=== PATIENT | female | born 1995 | race Caucasian/White ===

== ENCOUNTER → 2017-06-29 21:56 | Outpatient (CLI) | payer MEDICAID, SELFPAY ==
[2017-07-04 14:39] LABS: HPV Reflexed? NOT INDICATED
== END ==
PROVIDERS: Visit Provider Obstetrics & Gynecology
DX: Z12.4 Encounter for screening for malignant neoplasm of cervix (principal)
CPT/HCPCS: 88175; G0145

== ENCOUNTER 2019-01-23 10:12 | Emergency (ER) | payer MEDICAID, SELFPAY ==
[2019-01-23 10:13] VITALS: BP 101/68; PULSE 105; RESP 18; TEMP 36.3; O2SAT 99; BMI 22.1
--- NOTE | 2019-01-23 11:02 | ED.DCSUM_ITS ---
- ER Visit Summary Date of Service: 01/23/19 Chief Complaint: Nausea, vomiting and diarrhea History of Present Illness: The patient is a 23 F past medical history. Prior your tubal ligation. Patient states this morning around 7 AM had nausea, vomiting and diarrhea. No significant abdominal pain. Last menstrual period was 01/16/2019. She denies any vaginal bleeding or discharge. Denies any fever. Denies any dysuria. No one else at home currently is sick. Physical Examination: Young female no acute distress vital signs are stable and afebrile. HEENT exam unremarkable. Neck nontender. Lungs clear to auscultation bilaterally. Heart regular rhythm rate about 105 no murmur. Abdomen is soft and nontender normal bowel sounds no peritoneal signs. No localizing tenderness. No hernias or masses. No distention or signs of obstruction. Both the right upper right lower quadrants are unremarkable. Extremities moves all 4. Back nontender. Neurologically she is awake and alert with no focal motor deficits. Test Results: None Emergency Department Course and Treatment: History and exam are consistent with a viral gastroenteritis. Her abdomen is benign. She will be treated with IV fluids and IV Zofran. Reassessed and a p.o. challenge. Treatment Plan: Fluids and rest. As needed for nausea. Follow-up if not improving. Return if worse. Disposition: Discharge Impression: Acute nausea, vomiting and diarrhea secondary to viral gastroenteritis This note was generated with [employer] dictation software. It may contain incorrect words, spelling, and punctuation that were not noted in review of the chart prior to signing ED Disposition - Plan for ED Patient: Referrals: Care Physician,No Primary [Primary Care Provider] -
--- NOTE | 2019-01-23 11:04 | ED.DEP ---
ED Disposition - Plan for ED Patient: Disposition: Home or Assisted Living Instructions: GASTROENTERITIS, Viral (4y-Adult) Prescriptions: Ondansetron [Zofran Odt] 4 mg PO Q8H PRN PRN #7 tab PRN Reason: Nausea Prescription Printed Referrals: Cheng Gonzalez MD [STAFF PHYSICIAN] - 3-5 Days if not improving Additional Instructions: Fluids and rest. Zofran as needed for nausea. Follow-up with not improving or return if worse.
[2019-01-23 11:11] VITALS: BP 102/58; PULSE 71; RESP 16; O2SAT 98
[2019-01-23] MEDS: 0.9% Normal Saline 1,000 ML 1000 ML IV (11:12)
[2019-01-23] MEDS: Ondansetron 4 MG/2 ML Vial IV (11:12)
== END 2019-01-23 12:38 | disposition home or self-care (01) ==
LOC: ED 11:25
PROVIDERS: Emergency Provider Emergency Medicine
DX: A08.4 Viral intestinal infection, unspecified (principal); Z72.0 Tobacco use
CPT/HCPCS: 96361; 96374; 99283; J7030; J2405

== ENCOUNTER → 2019-05-08 13:23 | Outpatient (CLI) | payer MEDICAID, SELFPAY ==
[2019-05-08 13:01] VITALS: BMI 22.1
[2019-05-08 13:44] LABS: Absolute Lymphocyte Count 1.89 X10^3/uL (0.83-4.51); Absolute Neutrophil Count 3.3 X10^3/uL (2.0-7.7); Basophil# 0.03 X10^3/uL; Basophil% 0.5 % (0-1); Eosinophil# 0.21 X10^3/uL; Eosinophils% 3.6 % (0-5); Hematocrit 42.4 % (37-47); Hemoglobin 14.1 g/dL (12.0-15.0); Lymphocyte # 1.89 X10^3/ul (4.0); Lymphocyte % 32.1 % (19-41); Mean Corp Hgb Conc 33.3 g/dL (32-36); Mean Corpuscular Hgb 29.6 pg (27.0-32.0); Mean Corpuscular Volume 88.9 fL (81-99); Monocyte# 0.47 X10^3/uL; NRBC Flagged by Analyzer 0 % (0-5); Neutrophil # 3.26 X10^3/uL (2.7-7.7); Neutrophil % 55.3 % (47-70); Platelet Count 251 K/mm3 (150-450); RBC Distribution Width CV 11.8 % (11.6-14.6); RBC Distribution Width SD 38.1 fl (35.1-43.9); Red Blood Count 4.77 M/mm3 (4.2-5.4); White Blood Count 5.9 K/mm3 (4.4-11.0)
[2019-05-08 14:08] LABS: T4 Free Direct 0.98 ng/dL (0.76-1.46)
[2019-05-08 20:41] LABS: Chlamydia Trachomatis by PCR Negative (Negative); Neisserai gonorrhoeae by PCR Negative (Negative); Probe Check PASS; Sample Adequacy Control PASS; Specimen Processing Control PASS
== END ==
PROVIDERS: Referring Provider Obstetrics & Gynecology; Visit Provider Obstetrics & Gynecology
DX: N93.9 Abnormal uterine and vaginal bleeding, unspecified (principal)
CPT/HCPCS: 36415; 84439; 84443; 85025; 87491; 87591

== ENCOUNTER → 2019-05-16 07:49 | Outpatient (CLI) | payer MEDICAID, SELFPAY ==
[2019-05-08 13:01] VITALS: BMI 22.1
--- NOTE | 2019-05-16 07:49 | US_ITS ---
STUDY: ULTRASOUND OF THE FEMALE PELVIS - COMPLETE REASON FOR EXAM: Female, 23 years old. AUB LMP: 05/04/2019 TECHNIQUE: Transabdominal TECHNICAL QUALITY: Adequate. COMPARISON: None. FINDINGS: The uterus is anteverted and is in a midline position. The uterus measures 7.3 x 5.3 x 3.9 cm. Normal uterine cervix. The endometrium measures 2 mm in thickness, and is hyperechoic. There is no demonstrated endometrial mass. There is no demonstrated myometrial mass. I.U.D. - The patient does not have an I.U.D. The right ovary is visualized. The right ovary measures 3.7 x 3.6 x 2.6 cm. There is no right ovarian cyst or ovarian mass. There is no visualized right adnexal mass or complex lesion. There is normal arterial and normal venous vascularity. The left ovary is visualized. The left ovary measures 3.0 x 2.6 x 2.0 cm. There is no left ovarian cyst or ovarian mass. There is no visualized left adnexal mass or complex lesion. There is normal arterial and normal venous vascularity. There is no fluid in the cul-de-sac. The pre void volume of the bladder was 53 ml. The post void volume of the bladder was ml. Polycystic ovary disease: No. US/Pelvic (Non ) IMPRESSION: Normal female pelvis. Electronically Signed: Nagi Saenz MD at 17:38 EST Tel , Service support ,
== END ==
PROVIDERS: Referring Provider Obstetrics & Gynecology; Visit Provider Obstetrics & Gynecology
DX: N93.9 Abnormal uterine and vaginal bleeding, unspecified (principal)
CPT/HCPCS: 76856